=== PATIENT | male | born 1960 | race Caucasian/White ===

== ENCOUNTER → 2017-09-25 08:54 | Outpatient (CLI) | payer BC, SELFPAY ==
--- NOTE | 2017-09-25 | DI.MRI.S_ITS ---
PROCEDURE: MR LUMBAR SPINE WO CON INDICATIONS: LUMBAR STENOSIS TECHNIQUE: Noncontrast sagittal T1 spin echo and T2 fast echo, sagittal STIR, axial T1 and T2 fast spin echo through the lumbar spine. In cases with scoliosis, additional coronal T2 fast spin echo may be performed. COMPARISON: [facility], MR, L-SPINE WITHOUT CONTRAST, 03/24/2016, 14:04. FINDINGS: Image quality: Excellent. Alignment and Curvature: Loss of the normal lumbar lordosis as before Bone Marrow: Marrow is of normal overall signal. Diffuse endplate degenerative spurring and signal change. No acute vertebral body compression fractures. Spinal Cord: Conus medullaris terminates at the L1 level. Visualized cord demonstrates normal signal and size. Paraspinous Soft Tissues: No paravertebral masses. Dependent edema seen in the subcutaneous soft tissues from the level of L3-sacrum L1-L2: Normal appearance. L2-L3: Broad-based posterior disc bulge and bilateral facet arthropathy. There is severe canal stenosis, grossly unchanged. Moderate bilateral foraminal narrowing which appears unchanged L3-L4: Broad-based posterior disc bulge and bilateral facet arthropathy. Severe canal stenosis is present, grossly unchanged moderate left and mild to moderate right foraminal narrowing, as before. L4-L5: Broad-based posterior disc bulge and bilateral facet arthropathy with severe canal stenosis. Severe bilateral foraminal stenoses with unchanged appearance L5-S1: Broad-based posterior disc bulge and bilateral facet disease. Mild canal stenosis. Severe bilateral foraminal stenoses, unchanged IMPRESSION: Overall, no definite interval change since 03/24/16. Redemonstration of severe canal stenoses at L2-L3, L3-L4 and L4-L5. Numerous, bilateral moderate to severe foraminal stenoses as detailed above by spinal level, most pronounced at L4-L5 and L5-S1. Dictated by: Mainor Child M.D. on 09/25/2017 at 10:29 Approved by: Mainor Child M.D. on 09/25/2017 at 10:37
== END ==
PROVIDERS: Family Provider Family Medicine; PCP Family Medicine; Visit Provider Neurological Surgery
DX: M48.061 Spinal stenosis, lumbar region without neurogenic claudication (principal)
CPT/HCPCS: 72148

== ENCOUNTER → 2018-09-13 07:35 | Outpatient (CLI) | payer BC, SELFPAY ==
--- NOTE | 2018-09-13 | DI.MRI.S_ITS ---
PROCEDURE: MR CERVICAL SPINE WO CON INDICATIONS: LEFT ARM RADICULOPATHY TECHNIQUE: Noncontrast sagittal T1 spin echo and T2 fast spin echo, sagittal STIR, foraminal oblique sagittal T2 fast spin echo, and axial gradient echo or T2 fast spin echo through the cervical spine. COMPARISON: None. FINDINGS: Image quality: Excellent. Alignment and Curvature: There is normal bony alignment. Bone Marrow: Reactive endplate change is noted adjacent to the C3-C4, C4-C5, C5-C6 and C6-C7 discs. Spinal Cord: Small focus of increased T2 signal identified in the anterior margin of the cervical spinal cord at level C3-C4 disc most compatible mild spinal cord edema. No cerebellar tonsillar herniation. Paraspinous Soft Tissues: No paravertebral masses. Prevertebral soft tissues are normal in thickness. C2-C3: Loss of disc signal. Mild, diffuse disc bulge. Mild narrowing of the central canal. Mild bilateral neural foraminal narrowing. No neural impingement. C3-C4: Loss of disc signal and height. Moderate, diffuse disc bulge. Severe narrowing of the central canal with compression of the cervical spinal cord. Moderate bilateral uncovertebral joint hypertrophy. Severe bilateral neural foraminal narrowing with compression of the exiting C4 nerve roots. C4-C5: Loss of disc signal and height. Moderate, diffuse disc bulge. Severe narrowing of the central canal with slight compression of the cervical spinal cord. Moderate bilateral uncovertebral joint hypertrophy. Severe bilateral neural foraminal narrowing and compression of the exiting C5 nerve roots. C5-C6: Loss of disc signal and height. Moderate, diffuse disc bulge. Severe narrowing of the central canal with slight compression of the cervical spinal cord. Moderate bilateral uncovertebral joint hypertrophy. Severe bilateral neural foraminal narrowing with compression of the exiting C6 nerve roots. C6-C7: Loss of disc signal and height. Moderate, diffuse disc bulge. Moderate narrowing of the central canal. Mild right and moderate left uncovertebral joint hypertrophy. Moderate right and severe left neural foraminal narrowing with compression of the exiting left C7 nerve root. C7-T1: Loss of disc signal. Minimal, diffuse disc bulge. No central stenosis. No neural foraminal narrowing. No neural impingement. IMPRESSION: 1. Multilevel degenerative disc disease. 2. Multilevel uncovertebral arthropathy. 3. Severe C3-C4, C4-C5 and C5-C6 central canal narrowing. Moderate C6-C7 central canal narrowing. Mild C2-C3 central canal narrowing. 4. Severe bilateral C3-C4, C4-C5 and C5-C6 neural foraminal narrowing. Moderate right and severe left C6-C7 neural foraminal narrowing. Mild bilateral C2-C3 neural foraminal narrowing. 5. Small amount of probable edema involving the cervical spinal cord at level C3-C4 disc likely related to the severe central canal stenosis. Dictated by: Ruthie Hernandez MD, PhD on 09/13/2018 at 9:21 Approved by: Ruthie Hernandez MD, PhD on 09/13/2018 at 9:36
== END ==
PROVIDERS: Family Provider Family Medicine; PCP Family Medicine; Visit Provider Family Medicine
DX: M50.11 Cervical disc disorder with radiculopathy, high cervical region (principal); M47.22 Other spondylosis with radiculopathy, cervical region; M48.02 Spinal stenosis, cervical region
CPT/HCPCS: 72141

== ENCOUNTER → 2018-11-21 08:02 | Outpatient (CLI) | payer BC, SELFPAY ==
[2018-11-21 08:44] LABS: Appearance Urine UA CLEAR; Bilirubin Urine UA NEGATIVE (NEGATIVE); Color Urine UA YELLOW; Glucose Urine UA NEGATIVE (Negative); Ketones Urine UA NEGATIVE (NEGATIVE); Leukocyte Esterase Urine UA NEGATIVE (NEGATIVE); Nitrite Urine UA NEGATIVE (Negative); Occult Blood Urine UA NEGATIVE (Negative); Protein Urine UA NEGATIVE (Negative); Urobilinogen Urine UA 0.2 E.U./dL (0.2); pH Urine UA 7.5 (4.5-8.0)
[2018-11-21 08:51] LABS: Add Manual Diff / Slide Review NO; Basophils Absolute Auto 0 /uL (0-100); Basophils Percent Auto 0.8 % (0-2); Eosinophils Absolute Auto 200 /uL (0-450); Eosinophils Percent Auto 3.6 % (2-4); Hemoglobin 15.3 g/dL (13.5-17.5); Lymphocytes Absolute Auto 1500 /uL (1100-4500); Lymphocytes Percent Auto 24.9 % (25-40); Mean Corpuscular Hemoglobin 30.7 PG (26-34); Mean Corpuscular Volume 90.4 fL (80-100); Monocytes Absolute Auto 500 /uL (0-900); Monocytes Percent Auto 9.1 % (3-14); Neutrophils Absolute Auto 3600 /uL (1500-7000); Neutrophils Percent Auto 61.6 % (50-75); Platelet Count 216 X10^3/uL (150-400); Red Blood Cell Count 4.98 X10^6/uL (4.5-5.9); Red Cell Distribution Width 15.7 % (11.6-14.8); White Blood Cell Count 5.9 X10^3/uL (4.5-11.0)
[2018-11-21 09:10] LABS: Prothrombin Time 11.5 SECONDS (10.1-12.7)
[2018-11-21 09:17] LABS: Alanine Aminotransferase 15 IU/L (21-72); Albumin 4.5 g/dL (3.5-5.0); Albumin Globulin Ratio 1.4 (1.0-2.8); Alkaline Phosphatase 87 U/L (38-126); Aspartate Aminotransferase 20 IU/L (17-59); BUN Creatinine Ratio 10.9 (6-22); Bilirubin Total 0.6 mg/dL (0.2-1.3); Blood Urea Nitrogen 12 mg/dL (9-20); Calcium 9.5 mg/dL (8.4-10.2); Carbon Dioxide 31 mmol/L (22-32); Chloride 102 mmol/L (98-107); Estimated Glomerular Filt Rate > 60.0 mL/min (>60); Globulin 3.2 g/dL (1.7-4.1); Glucose 100 mg/dL (70-100); HEMOLYSIS < 15 (0-50); Potassium 4.3 mmol/L (3.4-5.1); Sodium 141 mmol/L (137-145); Total Protein 7.7 g/dL (6.3-8.2)
== END ==
PROVIDERS: Visit Provider Neurological Surgery
DX: Z01.812 Encounter for preprocedural laboratory examination (principal); M62.81 Muscle weakness (generalized); M47.12 Other spondylosis with myelopathy, cervical region
CPT/HCPCS: 36415; 80053; 81003; 85025; 85610

== ENCOUNTER → 2019-02-25 11:23 | Outpatient (CLI) | payer BC, SELFPAY ==
--- NOTE | 2019-02-25 | DI.RAD.S_ITS ---
PROCEDURE: XR CHEST 2V INDICATIONS: HISTORY OF SMOKING TECHNIQUE: 2 views of the chest were acquired. COMPARISON: None. FINDINGS: Surgical changes and devices: None. Lungs and pleura: Lungs are clear. No pleural effusions or pneumothorax. Mediastinum: Mediastinal contours are normal. Heart size is normal. Bones and chest wall: No suspicious bony abnormalities. Soft tissues appear unremarkable. IMPRESSION: No acute disease. Dictated by: Mainor Child M.D. on 02/25/2019 at 17:07 Approved by: Mainor Child M.D. on 02/25/2019 at 17:08
== END ==
PROVIDERS: PCP Student in an Organized Health Care Education/Training Program; Visit Provider Student in an Organized Health Care Education/Training Program
DX: Z87.891 Personal history of nicotine dependence (principal)
CPT/HCPCS: 71046

== ENCOUNTER → 2019-03-07 10:55 | Outpatient (CLI) | payer BC, SELFPAY ==
--- NOTE | 2019-03-14 16:19 | PM.PFT.1 ---
Pulmonary Function Test Referral & Results Date Patient Seen: 03/07/19 Requesting provider: Karishma Nieves Indication: Cough Results: The spirometry demonstrates an FVC of 3.14 L which is 67% of predicted. The FEV1 was measured at 2.20 L which is 61% of predicted. The FEV1/FVC ratio was 70 which is 91% of predicted. Following the administration of bronchodilator there was no appreciable change. Lung volumes show an SVC of 3.62 L which is 78% of predicted. The diffusing capacity was measured at 28.19 which is 90% of predicted. The maximum voluntary ventilation was reduced Interpretation: This study demonstrates moderate obstructive lung disease without evidence of benefit following bronchodilator There may be minimal restrictive lung disease present as well based on reduction SVC Diffusing capacity is probably normal Clinical correlation suggested
== END ==
PROVIDERS: PCP Student in an Organized Health Care Education/Training Program; Visit Provider Student in an Organized Health Care Education/Training Program
DX: J98.8 Other specified respiratory disorders (principal); R05 Cough; Z87.891 Personal history of nicotine dependence
CPT/HCPCS: 94060; 94726; 94729

== ENCOUNTER → 2020-01-22 15:52 | Outpatient (CLI) | payer BC, SELFPAY ==
--- NOTE | 2020-01-22 | DI.MRI.S_ITS ---
PROCEDURE: MR LUMBAR SPINE WO/W CON INDICATIONS: Intervertebral disc disorders with radiculopathy, TECHNIQUE: Noncontrast sagittal T1 spin echo and T2 fast spin echo, sagittal STIR, axial T1 and T2 fast spin echo through the lumbar spine. In cases with scoliosis, additional coronal T2 fast spin echo may be performed. After the administration of contrast, sagittal and axial T1 spin echo with fat saturation through the lumbar spine. COMPARISON: [facility], MR, MR LUMBAR SPINE WO CON, 09/25/2017, 9:14. [facility], CR, SPINE LUMB 2 OR 3VW, 04/05/2016, 14:06. [facility], MR, L-SPINE WITHOUT CONTRAST, 03/24/2016, 14:04. FINDINGS: Image quality: This examination is limited by involuntary motion artifact. Alignment and curvature: Minimal retrolisthesis is seen at L2-3, L3-4, and at L5-S1. Marrow: Marrow is of normal overall signal. No acute vertebral body compression fractures. No suspicious marrow enhancement. Spinal cord: Conus medullaris terminates at the L1 level. Visualized spinal cord demonstrates normal signal, without suspicious enhancement. Paraspinous soft tissues: No paravertebral masses or abnormal enhancement. Postoperative changes can be seen within the soft tissues posteriorly, L3 through L5 T12-L1: Normal appearance. L1-L2: Normal appearance. L2-L3: At least moderate loss of disc height and disc signal can be seen. Reactive marrow endplate changes are seen, which demonstrate mixed T1 weighted and T2-weighted signal, and are attributed to a combination of edema and fatty metaplasia (Modic type I and Modic type II changes). Moderate disc bulge is seen, which is eccentric to the right. Mild facet joint hypertrophy is seen. Moderate bilateral neural foraminal narrowing is seen, right worse than left. Moderate central canal narrowing is seen. The degree of central canal narrowing appears slightly improved compared to the 2018 examination. L3-L4: There has been removal of portions of the posterior elements. Moderate to severe loss of disc height and disc signal can be seen on the right side. Moderate prominent disc bulge is seen at this level. There is a mild central disc protrusion. At least moderate facet hypertrophy is seen. Moderate to severe bilateral neural foraminal narrowing can be seen. The degree of central canal narrowing is improved compared to 2018. The degree of neural foraminal narrowing has progressed. There is a degree of compression seen upon the exiting nerve roots. Mild central canal narrowing is seen. L4-L5: Moderate loss of disc height is seen. Loss of disc signal is seen. At least moderate disc bulge is seen, with a central disc protrusion. There has been removal of portions of the posterior elements. Moderate facet joint hypertrophy is seen. Moderate to severe bilateral neural foraminal narrowing is seen, left worse than right. There is a degree of compression seen upon the exiting nerve roots. Mild central canal narrowing is seen. The degree of central canal narrowing is improved compared to the prior MRI. L5-S1: [id number] loss of disc height and disc signal can be seen. Moderate disc bulge is seen, with a central disc protrusion. At least moderate facet hypertrophy is seen. There is moderate to severe bilateral neural foraminal narrowing seen, left worse than right. There is a degree of compression seen upon the exiting nerve roots. Mild to moderate central canal narrowing is seen. When comparison is made with the prior examination, these findings are similar. IMPRESSION: Interval postoperative change, with removal of portions of the posterior elements inferiorly. Improved central canal narrowing at L2-3 and L3-4 and L5-S1 compared to 2018. The degree of neural foraminal narrowing has progressed at L3-4 compared to 2018. Dictated by: Phillip Meyer M.D. on 01/22/2020 at 16:44 Approved by: Phillip Meyer M.D. on 01/22/2020 at 16:52
== END ==
PROVIDERS: PCP Student in an Organized Health Care Education/Training Program; Referring Provider Student in an Organized Health Care Education/Training Program; Visit Provider Student in an Organized Health Care Education/Training Program
DX: M51.16 Intervertebral disc disorders with radiculopathy, lumbar region (principal)
CPT/HCPCS: 72158